=== PATIENT | female | born 1985 | race African-American/Black ===

== ENCOUNTER 2017-11-30 07:54 | Emergency (ER) | payer MEDICAID, OTHER ==
[~2017-11-30] VITALS: Ht 157.5 cm; Wt 59.0 kg
[2017-11-30 07:56] VITALS: BP 124/90
[2017-11-30] MEDS ORDERED: PENICILLIN G BENZATHINE 1,200,000 UNITS/2ML SYR IM ONE (09:00)
[2017-11-30] MEDS ORDERED: DEXAMETHASONE 10 MG/ML VIAL IM ONE (09:00)
== END 2017-11-30 09:11 | disposition home or self-care (01) ==
LOC: ER 08:09
DX: J02.9 Acute pharyngitis, unspecified (principal)
CPT/HCPCS: 87430; 96372; 99284; J0561; J1100; Z7610

== ENCOUNTER 2018-04-24 11:34 | Emergency (ER) | payer OTHER ==
[~2018-04-24] VITALS: Ht 152.4 cm; Wt 62.0 kg
[2018-04-24 11:51] VITALS: BP 114/84
== END 2018-04-24 14:42 | disposition left against medical advice (07) ==
LOC: ER 11:34
DX: Z53.21 Procedure and treatment not carried out due to patient leaving prior to being seen by health care provider (principal)